=== PATIENT | female | born 1955 | race Caucasian/White ===

== ENCOUNTER 2024-07-08 13:07 | Emergency (ER) | payer OTHER, SELFPAY ==
[2024-07-08 13:12] VITALS: BP 117/85
--- NOTE | 2024-07-08 13:46 | ED.GENMED ---
History of Present Illness
General
Chief Complaint: Musculo-Skeletal Complaint
Time Seen by Provider: 07/08/24 13:46
History of Present Illness
History of Present Illness:
TIME OF INITIAL ENCOUNTER: 2 PM
HPI: The patient presents with pain in the inferior portion of the left buttock which started last week. At that time, she also had symptoms that radiated down to the mid thigh. She had been doing a little bit better and then yesterday she moved
awkwardly and had severe debilitating symptoms. However today she is improved. She thought maybe she has sciatica but her friend thought it could be coming from her hip. Primary care suggested could be muscular in nature when she was there for a
blood pressure check.
EXAM:
GENERAL: Well appearing in no distress
HEENT: Moist oral mucosa
CARDIOVASCULAR: No murmurs, normal heart rate, regular rhythm, No chest wall tenderness
PULMONARY: No respiratory distress, breath sounds are clear and equal
ABDOMEN: Soft with no peritoneal signs, no tenderness
NEUROLOGIC: Excellent strength all extremities, no coordination deficits, she has excellent strength in an L5 and S1 distribution, she has normal L4 reflexes
PSYCHIATRIC: Appropriate mental status, normal insight and judgement
EXTREMITIES: Nontender, no edema, moves all extremities equally
BACK: No midline L-spine tenderness, borderline positive straight leg raise at 60 degrees on the left
SKIN: No rash, no lesions
NUMBER AND COMPLEXITY OF PROBLEMS ADDRESSED AT THE ENCOUNTER
� Chronic conditions affecting care: High blood pressure
� Acute Exacerbation and/or Progression of Chronic Illness: This is an acute problem
� Differential Diagnosis includes: Muscle strain, sciatica, hip pathology less likely
AMOUNT AND/OR COMPLEXITY OF DATA TO BE REVIEWED AND ANALYZED
� I performed an independent evaluation of and my interpretation is:
EKG:
CT:
X-rays:
Laboratory Studies:
Other:
� Review of other/old records: No old records available for review
� Clinical information was obtained by an independent historian: I spoke to niece at bedside
� Prescriptions/Medications Considered but not given: Declines analgesia
� Further testing considered but not performed: No clear indication for imaging at this time. Neurologically intact therefore no MRI. She has no midline tenderness or pain therefore no x-ray.
RISK OF COMPLICATIONS AND/OR MORBIDITY OR MORTALITY OF PATIENT MANAGEMENT
� Social determinants of health affecting care: Lives at home
� Discussion with other providers:
� Escalation of care including admission/observation vs risk of discharge considered: History and exam is consistent with sciatica type of pain. I recommend that the patient try NSAIDs. She did take Tylenol with some
improvement as well.
ANY OTHER UPDATES:
Phy Exam
Physical Exam
Physical Exam:
See HPI
Course
Vital Signs
Initial and Last Documented VS:
Initial Vital Signs
Temp Pulse Resp BP Pulse Ox
36.9 C 103 18 117/85 98
07/08/24 13:12 07/08/24 13:12 07/08/24 13:12 07/08/24 13:12 07/08/24 13:12
Last Documented Vital Signs
Temp Pulse Resp BP Pulse Ox
36.9 C 103 18 117/85 98
07/08/24 13:12 07/08/24 13:12 07/08/24 13:12 07/08/24 13:12 07/08/24 13:12
*Critical Care Note
Total Time (30-74mins, 75-104mins- exclusive of procedures): Not Applicable
ED Attending Note
-
Portions of this chart may have been created with voice recognition software.� Occasional wrong word or��sound alike� substitutions may have occurred due to the inherent limitations of voice recognition software.
Discharge Plan
Departure
Patient Disposition: Home (Routine Discharge)
Date of Disposition: 07/08/24
Time of Disposition: 14:06
Patient with high blood pressure during this ER visit?: Yes
Discharge Problem:
Sciatica
Instructions: Sciatica ED, Exercises for sciatic pain, BLOOD PRESSURE
Referrals:
Juan Mullen MD [Active] - Follow up in 2-3 days
Activity Restrictions/Additional Instructions:
I recommend 3-4 [id number] ibuprofen (Motrin) every 8 hours with food for a few days. Return here if worse. Follow with your primary care doctor. If symptoms persist I have also given you the contact information for local orthopedist.
Interventions
Interventions:
*Risk Screen - Suicide Last Done: 07/08/24 13:12
*General Assessment Last Done: 07/08/24 13:12
*ED COVID-19 Vaccine History Last Done: 07/08/24 13:12
ED-Musculoskeletal Assessment Last Done: 07/08/24 14:04
Discharge Date and Time
Print Language: MACEDONIAN
== END 2024-07-08 14:40 | disposition home or self-care (01) ==
LOC: EMR 13:07
PROVIDERS: EMERGENCY PHYSICIAN Emergency Medicine
DX: M54.42 Lumbago with sciatica, left side (principal); R03.0 Elevated blood-pressure reading, without diagnosis of hypertension; Z88.2 Allergy status to sulfonamides
CPT/HCPCS: 99282

== ENCOUNTER 2024-12-15 13:56 | Inpatient (IN) | payer OTHER, SELFPAY ==
[2024-12-15 10:55] VITALS: BP 153/84
[2024-12-15] MEDS: PERCOCET 5/325 1 TABLET PO (12:57)
--- NOTE | 2024-12-15 12:57 | ED.GENMED ---
History of Present Illness
General
Chief Complaint: Fall
Source: patient
Exam Limitations: none
Time Seen by Provider: 12/15/24 12:08
Nursing documentation reviewed up to this point in time: agreed with
History of Present Illness
History of Present Illness:
see MDM
Past History
Past History
ED Past Medical History: HTN
ED Past Surgical History: None
Social History
Tobacco: Non-smoker
Alcohol: None
Review of Systems
Review of Systems
Allergies reviewed?: Yes
All Other Systems: Not applicable
Phy Exam
Physical Exam
Physical Exam:
GENERAL: Alert , in no apparent distress
HEAD: NCAT
NECK: no midline tenderness, active ROM intact, no paraspinal muscle tenderness;
EYE: pupils equal and reactive, EOMs intact.
ENT: o/p clr, mmm. no hemotympanum
CARDIAC: Regular rate and rhythm, no edema
LUNGS: Clear breath sounds bilaterally, no acute respiratory distress, no wheezes/rales/rhonchi
ABDOMEN: Soft, without focal tenderness, no r/g, no cvat
NEUROLOGICAL: Alert and oriented, no focal neuro deficits, CN intact, 5/5 strength, sensation intact
SKIN: Warm and dry,
MUSCULOSKELETAL moderate R wrist swelling and tendneress, limited ROM, neuro intact
right shoulder/elbow normal
L elbow swelling, very tender, unable to move, effusion; normal sensation
shoulder nontender
PSYCH: Normal and appropriate interaction.
Course
Orders/Labs/Results
Orders:
Orders
12/15/24 Breakfast
Regular
At Your Request: Limited, [employer] Process Server Developer Required
Does patient need a safe tray?: No
12/15/24 10:58
CR Elbow - Left Min 3 Views Urgent
Comment:
Reason For Exam: injury: fall
CR Wrist - Right Min 3 Views Urgent
Comment:
Reason For Exam: injury: fall.
12/15/24 12:43
Oxycodone/Acetaminophen [Percocet 5/325] 1 tablet PO NOW STA
12/15/24 12:51
CT Upper Ext W/o Iv Cont Lt Urgent
Comment:
Reason For Exam: L elbow fx
12/15/24 13:24
Admit/Transfer Patient As Directed
Co-Sign Provider:
Level of Care: Inpatient admission
Assign to:: Telemetry
Physician / Group: prasad
Diagnosis: fracture
Reason for Telemetry: Arrhythmia
Date to Stop Telemetry: 12/18/24
Time to Stop Telemetry: 11:00
Reason for Hospitalization: fracture
Expected length of stay greater than two midnights?: Yes
ELOS- Estimated Length of Stay in days: 3
I certify the patient meets the requirements for IP care: Yes
PRN Pain Medication Management As Directed
May give lesser potent ordered pain med per pt: Yes
preference::
Protocol:: Medication orders for pain may be administered in a
manner that supports deferring to patient preference
when the pt is:
- Requesting an ordered lesser potent pain medication.
Least to most potent pain medications are defined
as: acetaminophen < NSAID < tramadol < opioids
(morphine, oxycodone, hydromorphone).
- Requesting a lesser dose of the same medication IF
ORDERED.
- Requesting a less intrusive route of administration
if both routes are prescribed by the provider (PO <
IV).
12/15/24 13:25
Code Status As Directed
Resuscitation Status: Full Code
12/15/24 13:33
Complete Blood Count/With Diff Urgent
Comprehensive Metabolic Panel Urgent
12/15/24 13:43
EKG [Electrocardiogram (*1)] Routine
Reason for Study: Tachycardia
12/15/24 16:08
Acetaminophen [Tylenol] 650 mg PO Q4HWA
HYDROmorphone [Dilaudid] 0.5 mg IV Q4HPRN PRN
Oxycodone [Roxicodone] 5 mg PO Q4HPRN PRN
12/15/24 16:08
ORTHOPEDIC CONSULT Routine
Consulting Provider: Hesham Benson
Was physician already notified: Yes
Activity As Directed
Activity Level: As Tolerated
Bladder Scan As Directed
Follow Bladder Retention/Intermittent Cath Algorithm?: Yes
PRN if no void in __ hours: 6
Comment: if not voiding 6 hrs upon arrival to floor, bladder scan & follow algorithm
Intake/ Output As Directed
Frequency: Per unit guidelines
Pneumatic Compression Sleeves As Directed
Type: Thigh high
Straight Cath As Directed
Frequency: Per Retention Algorithm
Additional Instructions: straight cath as needed per acute urinary retention algorithm for 24 hrs
Additional Instructions: for bladder scan greater than 400 mL
Vital Signs As Directed
Frequency: Per unit guidelines
Ot Eval And Treat Routine
Pt Eval And Treat Routine
Activity Level: As Tolerated
DX Deep Vein Thrombosis Video Routine
DX Deep Vein Thrombosis Video Routine
12/15/24 20:00
Docusate Sodium [Colace] 100 mg PO BID
Sennosides [Senokot] 17.2 mg PO BID
12/18/24 11:00
DC Protocol for Telemetry ONCE
Abnormal Lab Results
12/15/24
13:33
WBC 14.9 H 10^3/uL
(4.8-10.8)
Abs Immat Gran (auto) 0.1 H 10^3/uL
(0-0.05)
Absolute Neuts (auto) 13.3 H 10^3/uL
(1.4-6.5)
Absolute Lymphs (auto) 0.8 L 10^3/uL
(1.2-3.4)
Neutrophils % 89.2 H %
(42.2-75.2)
Lymphocytes % 5.6 L %
(20.5-51.1)
BUN 30 H mg/dl
(7-17)
Creatinine 1.3 H mg/dL
(0.6-1.0)
Glucose 101 H mg/dl
(70-99)
Calcium 11.1 H mg/dl
(8.4-10.2)
AST 37 H U/L
(14-36)
Alkaline Phosphatase 171 H U/L
(38-126)
Albumin 5.1 H g/dl
(3.5-5.0)
12/15/24 13:33
12/15/24 13:33
Vital Signs
Initial and Last Documented VS:
Initial Vital Signs
Temp Pulse Resp BP Pulse Ox
36.9 C 108 16 153/84 98
12/15/24 10:55 12/15/24 10:55 12/15/24 10:55 12/15/24 10:55 12/15/24 10:55
Last Documented Vital Signs
Temp Pulse Resp BP Pulse Ox
36.7 C 123 18 178/96 97
12/15/24 15:54 12/15/24 15:54 12/15/24 15:54 12/15/24 15:54 12/15/24 15:54
MDM/Problems Addressed
Differential Diagnosis Includes:
see MDM
MDM/Problems Addressed:
Note:
CHIEF COMPLAINT(S)
Left elbow and wrist pain following a fall.
HISTORY OF PRESENT ILLNESS
The patient, a female 68 y/o , presents with pain in her left elbow and wrist following a fall. She reported tripping while walking out to her car, attempting to brace her fall, resulting in the injuries. The incident occurred after she [place] a [place] an amusement park with her grandchildren. She did not lose consciousness but felt shaky and required assistance to get up. No head, neck, or rib injury was reported. The patient described her wrist as uncomfortable due to the weight of ice
applied.
she deneis headache, vomiting, confusion, neck pain, rib pain, weakness, sob.
PAST SURGICAL HISTORY
The patient reports having had surgery on her pinky, conducted at [facility].
SOCIAL HISTORY
The patient lives with her daughter and sister, which she describes as a supportive living arrangement.
REVIEW OF SYSTEMS
- Musculoskeletal: Left elbow and wrist pain with confirmed fractures.
- Neurological: [place] shaky immediately post-fall; no loss of consciousness.
- General: No head or rib injuries reported.
PHYSICAL EXAM
- Nursing notes reviewed and vital signs reviewed
.
PROBLEM LIST
Acute:
- Fracture of the distal humerus and wrist on the left side
.
PLAN
1. Initiate stabilization with a splint and sling to immobilize the affected areas temporarily.
2. Pain management with Percocet as patient previously tolerated this medication.
3. Orthopedic consultation to determine need for surgical intervention.
4. Provide a work note and recommend rest and limited use of the left arm.
5. Discuss with orthopedic services for potential outpatient follow-up and further management.
DIFFERENTIAL DIAGNOSIS
The Differential Diagnosis includes, in no particular order and is not limited to:
1. Traumatic fracture.
2. Simple elbow dislocation.
3. Contusion.
4. Bursitis.
5. Sprain.
6. Arthritis exacerbation.
7. Tendon injury.
8. Ligament tear.
9. Periosteal injury.
10. Radial head fracture.
68 y/o F
mechanical fall today
R wrist and L elbow pain
no head strike
no LOC
no AC
R wrist xcray indep reviewed shows impacted distal radius fx
L elbow xray indep reviewed shows distal humerus fx
both arms fractured, d/c ortho
requests CT of the elbow and both will need operative management
splint R volar velcro
and L posterior and sling
admit to medicine and he will take to OR
*Pulse Oximetry
SaO2: 98
Oxygen Mode of Delivery: Room air
Patient hypoxic: no (98)
*Critical Care Note
Total Time (30-74mins, 75-104mins- exclusive of procedures): Not Applicable
ED Attending Note
-
Portions of this chart may have been created with voice recognition software.� Occasional wrong word or��sound alike� substitutions may have occurred due to the inherent limitations of voice recognition software.
Discharge Plan
Departure
Patient Disposition: Admit
Date of Disposition: 12/15/24
Time of Disposition: 13:00
Presentation/result/management discussed w/ accepting MD/DO: Hospitalist
Condition: Fair
Covid-19: Not Applicable
Discharge Problem:
Elbow fracture, left, Fracture of right wrist
Interventions
Interventions:
*Risk Screen - Suicide Last Done: 12/15/24 15:51
*General Assessment Last Done: 12/15/24 12:58
*Neglect/Abuse Screening Last Done: 12/15/24 12:58
*ED- Fall Risk Assessment Last Done: 12/15/24 12:58
*ED COVID-19 Vaccine History Last Done: 12/15/24 12:58
*Nursing Disposition Last Done: 12/15/24 15:45
ED-Musculoskeletal Assessment Last Done: 12/15/24 12:01
ED- Neurological Assessment Last Done: 12/15/24 12:01
ED-Skin Assessment Last Done: 12/15/24 12:01
Discharge Date and Time
Discharge Date/Time: 12/15/24 15:45
[2024-12-15 12:58] VITALS: BMI 23.0
--- NOTE | 2024-12-15 13:06 | HPS.HSE ---
Addendum entered and electronically signed by Connie Perez MD 12/15/24 13:43:
Patient without significant cardiac history apart from asympotomatic heart murmur. Labs pending. Low risk for post cardiac complications after surgery.
Addendum entered and electronically signed by Connie Perez MD 12/15/24 13:40:
This is an addendum to H&P written by Roxy Cameron on 12/15/2024. �Patient seen and examined independently with JEWELRY DESIGNER.
68-year-old female past medical history of hypertension, osteopenia, osteoporosis, heart murmur, CKD, presenting with trip and fall falling forward onto her arms and knees.
Vital signs show tachycardia.
X-ray of the left elbow shows acute extra-articular transverse fracture of the distal left humerus extending to the medial and lateral epicondyles. �Large left elbow joint effusion likely hemarthrosis. �Right wrist x-ray shows acute impacted
comminuted intra-articular fracture of the distal right radius with fracture line extending proximally through the palmar cortex of the radial diaphysis.
Orthopedics consulted recommends CT scan of elbow. �Plan for surgical management of left distal humerus fracture and right wrist fracture on Tuesday unless availability opens up earlier. �Splint placed on right wrist. �Splint to be placed on left
elbow. �Pain control with Tylenol, oxy, Dilaudid PRN. Elevated BP and tachycardia secondary to pain.
Original Note:
Family Physician
-
Family Physician:
Chief Complaint
-
fall
History of Present Illness
68-year-old with past medical history of hypertension, osteoporosis, osteopenia, heart murmur, CKD presented to us status post fall at home. Patient stated, she tripped on something and fell forward onto her knees and arm. Patient stated bilateral
arm pain since the fall. Patient denied any prior headache, dizzy or syncope. Patient denied any fever, chills, chest pain, shortness of breath. Patient denies any abdominal pain, nausea, vomiting or diarrhea. Patient denies dysuria hematuria.
Admitting for further management for fracture
Medical History
Past Medical History
Past Medical History: Reports Other
Additional Past Medical History:
Essential hypertension, osteopenia, osteoporosis, CKD
Past Surgical History: Reports None
Social History
Tobacco: Smoker
Alcohol: None
Drug: None
Living: With Family
Family History
Family History: Not pertinent
Allergies / Home Medications
Allergies reflects when Allergies were last updated in [facility].
Home Medications with original date entered in [facility]
Allergy/Medication List:
Allergies
Allergy/AdvReac Type Severity Reaction Status Date / Time
Sulfa (Sulfonamide Allergy Swelling Verified 12/15/24 10:55
Antibiotics)
Review of Systems
-
Constitutional: Reports No Symptoms
EENT: Reports No Symptoms
Respiratory: Reports No Symptoms
Cardiac: Reports No Symptoms
Abdomen/GI: Reports No Symptoms
: Reports No Symptoms
Musculoskeletal: Reports No Symptoms
Skin: Reports No Symptoms
Neurological: Reports No Symptoms
Endocrine: Reports No Symptoms
Hematologic/Lymphatic: Reports No Symptoms
Psych: Reports No Symptoms
Physical Exam
Vital Signs
Vital Signs
Temp Pulse Resp BP Pulse Ox
98.4 F 108 16 153/84 98
12/15/24 10:55 12/15/24 10:55 12/15/24 10:55 12/15/24 10:55 12/15/24 13:00
Physical Exam
General: Well Developed, Well Nourished and No Apparent Distress
HEENT: NormoCephalic, Moist mucous membranes and Atraumatic
Respiratory: Clear
Cardiac: S1/S2 and Regular Rhythm; No Murmur or Rub
GI: Soft, Non Tender, Non Distended and Normal Bowel Sounds; No Organomegaly
Rectal: Deferred by Provider
Musculoskeletal: No Clubbing, No Cyanosis and Other (Right wrist swelling, tenderness, left elbow swelling)
Skin: No Rash
Neuro: AO x 3 and Nonfocal/grossly intact
Psych: Calm
Data Reviewed
-
Diagnostic Radiology: Report Reviewed by me
Lab Data: Labs Reviewed by me
Impression/Plan
-
# Right radius and left distal humerus fracture status post fall
- Wrist x-ray with impression ACUTE IMPACTED COMMINUTED INTRA-ARTICULAR FRACTURE of the DISTAL RIGHT RADIUS with a fracture line extending proximally through the palmar cortex of the radial diaphysis. Moderate dorsal angulation of the distal radial
articular surface.
- Elbow x-ray with impression of ACUTE EXTRA-ARTICULAR TRANSVERSE FRACTURE of the DISTAL LEFT HUMERUS extending through the medial and lateral epicondyles.Large left elbow joint effusion (hemarthrosis).
- CT of upper extremity pending
- Orthopedics
- PT/OT
- Oxy, Tylenol, Dilaudid PRN for pain
- Possible plan for OR on Tuesday
-splint in the ER
#essential HTn
-on Norvasc
#CKD
-labs pending
-will ctm
#osteopenia/osteoporosis
#DVT prophylaxis
-scd
#CODE status
-full code
[2024-12-15 13:19] VITALS: BP 178/71
[2024-12-15 13:40] LABS: Hematocrit 40.6 % (37.0-47.0); Hemoglobin 13.9 g/dL (12.0-16.0); Mean Corp Hgb Conc. 34.2 g/dL (33.0-37.0); Mean Corpuscular Volume 85.8 fL (81.0-99.0); Nucleated Red Blood Cells % 0 %; Platelet Count 249 10^3/uL (130-400); Red Cell Dist. Width 12.6 % (11.5-14.5)
[2024-12-15 14:13] LABS: ALT (SGPT) 28 U/L (0-35); AST (SGOT) 37 U/L (14-36); Albumin 5.1 g/dl (3.5-5.0); Alkaline Phosphatase 171 U/L (38-126); Blood Urea Nitrogen 30 mg/dl (7-17); Calcium 11.1 mg/dl (8.4-10.2); Carbon Dioxide 23 mmol/L (22-30); Chloride 101 mmol/L (98-107); Estimated Creatinine Clearance 37 ml/min; Glucose 101 mg/dl (70-99); Potassium 4.4 mmol/L (3.5-5.1); Sodium 135 mmol/L (135-145); Total Protein 7.7 g/dl (6.3-8.2); eGFR 44.51
--- NOTE | 2024-12-15 14:28 | CM ---
CM reviewed chart and met with pt bedside in ED. Lives with her sister and niece in 2 story home, 2 [facility] from [facility]. BR on second floor but plans to stay in first floor BR, has full BA first floor.
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
No hx VN or SNF
PC: Jojo Montenegro
Pharmacy: [facility] [id number] [address]
CM will continue to follow for any discharge planning needs.
[2024-12-15 15:50] VITALS: BMI 22.7
[2024-12-15 15:54] VITALS: BP 178/96
[2024-12-15] MEDS: TYLENOL 650 MG PO ×2 (18:25→21:26)
[2024-12-15] MEDS: DILAUDID 0.5 MG IV (18:29)
[2024-12-15 18:31] VITALS: BP 153/92
[2024-12-15 19:30] VITALS: BP 145/82
[2024-12-15] MEDS: OCUVITE SOFTGEL 1 CAP PO (21:20)
[2024-12-15] MEDS: COLACE 100 MG PO (21:20)
[2024-12-15] MEDS: SENOKOT 17.2 MG PO (21:21)
[2024-12-15] MEDS: OSCAL CAL 500 500 MG PO (21:24)
[2024-12-15] MEDS: VITAMIN D3 (cholecalciferol) 25 MCG PO (21:26)
[2024-12-15] MEDS: ROXICODONE 5 MG PO (21:35)
[2024-12-15 23:30] VITALS: BP 149/74
[2024-12-16] MEDS: TYLENOL PO ×2 (01:23→04:41)
[2024-12-16 03:22] VITALS: BP 153/88
[2024-12-16 07:10] VITALS: BP 168/68
--- NOTE | 2024-12-16 08:10 | W.PN.HOSP.TC ---
Today's Communication/Plan
-
Pain control
Plan for OR on Tuesday
Assessment / Plan
Assessment / Plan
69F with HTN, CKD 4 presenting with fall found to have right radius and left distal humerus fracture.
Right radius and left distal humerus fracture
- CT of L upper extremity performed, also has a small joint effusion
- Orthopedics consulted�per notes plan for OR on Tuesday
- PT/OT
- Oxy, Tylenol, Dilaudid PRN for pain
-splint in the ER
#essential HTN
- BP elevated
Continue Norvasc, losartan
#CKD
- Creatinine stable
#osteopenia/osteoporosis
#Tobacco use
On varenicline at home
#DVT prophylaxis
-scd
#CODE status
-full code
Anticipated Discharge: > 48 hours
Subjective/Interval History
-
Date of Service: December 16, 2024
Feeling ok, pain controlled. No other issues.
Objective Data
-
Vital Signs:
Vital Signs
Temp Pulse Resp BP Pulse Ox
97.7 F 93 18 168/68 99
12/16/24 07:10 12/16/24 07:10 12/16/24 07:10 12/16/24 07:10 12/16/24 07:10
I&O
12/15/24 12/16/24 12/17/24
06:59 06:59 06:59
Intake Total 480 / 480
Balance 480 / 480
Review of Systems
-
All other systems: Reviewed and negative
Physical Exam
-
General: No Apparent Distress
HEENT: Moist Mucous Membranes, Anicteric and PERRLA
Respiratory: Clear to Auscultation; Negative Wheezes, Rales or Rhonchi
Cardiac: Regular Rhythm and S1/S2; Negative Murmur, Rub or Gallop
GI: Soft, Nontender, Nondistended and Normal Bowel Sounds
Musculoskeletal: No Edema
Skin: Warm and Dry; Negative Rash, Ulcers or Lesions
Neuro: Awake and AO x 3
Hematologic / Lymphatic: No Lymphadenopathy
Psych: Calm
Data Reviewed
-
CT Scan: Report Reviewed by me
Labs: Labs Reviewed by me and Discussed with Patient
[2024-12-16] MEDS: SENOKOT 17.2 MG PO ×2 (09:06→19:58)
[2024-12-16] MEDS: TYLENOL 650 MG PO ×4 (09:06→19:58)
[2024-12-16] MEDS: OCUVITE SOFTGEL 1 CAP PO ×2 (09:07→19:57)
[2024-12-16] MEDS: COZAAR 100 MG PO (09:07)
[2024-12-16] MEDS: OSCAL CAL 500 500 MG PO ×2 (09:07→19:57)
[2024-12-16] MEDS: NORVASC 10 MG PO (09:07)
[2024-12-16] MEDS: COLACE 100 MG PO ×2 (09:07→19:57)
[2024-12-16] MEDS: CRESTOR 5 MG PO (09:07)
[2024-12-16] MEDS: ROXICODONE 5 MG PO ×3 (09:16→22:10)
[2024-12-16 11:36] VITALS: BP 142/78
--- NOTE | 2024-12-16 15:11 | W.PN.UPDATE ---
Update Note
Progress Note Update
Patient seen with family members at the bedside this afternoon. Full consult note to follow. Plan for OR on Monday 12/18 for ORIF right distal radius and left distal humerus fractures. Risks, benefits, alternatives, recovery process and potential
complications were discussed in detail. Surgical and blood consent signed and in patient chart.
--continue with immobilization in splints.
--NWB to LUE, limit weight bearing to RUE.
--pain control prn.
[2024-12-16 15:15] VITALS: BP 130/66
--- NOTE | 2024-12-16 18:22 | CON.ORTHO ---
Consultation
-
Date/Time Consultation Requested: 12/16/2024; time unknown
Date/Time Consultation Performed: 12/16/2024
Requesting Provider: unknown
Performing Provider: Cori Langston PA-C
Reason for Consultation: Right wrist fracture, Left elbow fracture
Consultation - Orthopedics
History
Ms. Willis is a 69 year old female with PMH of hypertension, osteoporosis, osteopenia, heart murmur, CKD seen today for her right wrist and left elbow. She reports she tripped while at home and landed with her arms outstretched. She was able to get
up off the ground, but knew immediately that her right was broken. She presented to ED where x-rays revealed a right distal radius fracture and left distal humerus fracture. She was splinted in the ED. She does endorse pain in her right wrist
with movement, but states her pain is well controlled at present. She denies pain elsewhere.
She lives at home with two family members. She denies any known history of difficulty with anesthesia. She denies PMH of DVT, CVA, TN or DM.
Allergies / Home Medications
Allergy/AdvReac Type Severity Reaction Status Date / Time
Sulfa (Sulfonamide Allergy Swelling Verified 12/15/24 10:55
Antibiotics)
�Medication �Instructions �Recorded
amlodipine 10 mg tablet 10 mg PO DAILY Blood Pressure 12/15/24
aspirin 81 mg tablet 81 mg PO DAILY Blood Clot 12/15/24
Prevention/Tx
calcium carbonate (Calcium 600) 600 mg PO BID Supplement 12/15/24
cholecalciferol (vitamin D3) 25 25 mcg PO HS Supplement 12/15/24
mcg (1,000 unit) tablet
docusate sodium 100 mg tablet 100 mg PO DAILYPRN PRN constipation 12/15/24
losartan 100 mg tablet 100 mg PO DAILY Blood Pressure 12/15/24
magnesium oxide 400 mg PO HSPRN PRN sleep 12/15/24
melatonin 10 mg tablet 10 mg PO HS PRN sleep 12/15/24
rosuvastatin 5 mg tablet 5 mg PO DAILY High Cholesterol 12/15/24
therapeutic multivitamin 1 tab PO DAILY Supplement 12/15/24
varenicline tartrate 1 mg tablet 1 mg PO HS Smoking Cessation 12/15/24
vit C 250 mg-vit E 90 mg-zinc 40 1 tab PO BID Supplement 12/15/24
mg-copper 1 [id number]
capsule (PreserVision AREDS-2)
Vital Signs / Lab Results
Temp Pulse Resp BP Pulse Ox
97.9 F 97 18 130/66 98
12/16/24 15:15 12/16/24 15:15 12/16/24 15:15 12/16/24 15:15 12/16/24 15:15
12/15/24 13:33
12/15/24 13:33
XR Left Elbow IMPRESSION:
1. ACUTE EXTRA-ARTICULAR TRANSVERSE FRACTURE of the DISTAL LEFT HUMERUS extending through the medial and lateral epicondyles.
2. Large left elbow joint effusion (hemarthrosis).
XR Right Wrist IMPRESSION:
ACUTE IMPACTED COMMINUTED INTRA-ARTICULAR FRACTURE of the DISTAL RIGHT RADIUS with a fracture line extending proximally through the palmar cortex of the radial diaphysis. Moderate dorsal angulation of the distal radial articular surface.
CT Left Upper Extremity IMPRESSION:
Probably comminuted nondisplaced acute distal left humeral fracture as described above. Associated small joint effusion.
Directed exam of the right upper extremity reveals wrsit brace in place. Good color and warmth of fingers. Patient able to wiggle fingers. Sensation intact to light touch. Capillary refill <2 seconds.
Directed exam of the left upper extremity reveals long arm splint in place. Good color and warmth of fingers. Patient able to wiggle fingers. Sensation intact to light touch. Capillary refill <2 seconds.
Assessment / Plan
Right distal radius fracture; Left distal humerus fracture
--Unfortunately, Cori sustained fractures of her right distal radius and left distal humerus. I recommend proceeding with open reduction internal fixation of her right distal radius and left distal humerus. The risks, benefits, alternatives,
recovery process and potential complications were discussed in detail. She verbalized understanding and would like to proceed with surgery. This is planned for Monday 12/18 under the direction of Dr. Benson. Surgical and blood consents signed and
placed on patient chart.
--Continue with immobilization in splints.
--NWB to LUE, limit weight bearing to RUE.
--Pain control prn. Ice and elevation for edema control.
--Orthopedics will continue to follow along.
[2024-12-16 19:53] VITALS: BP 140/64
[2024-12-16] MEDS: VITAMIN D3 (cholecalciferol) 25 MCG PO (22:11)
[2024-12-16 22:58] VITALS: BP 151/51
[2024-12-17] VITALS (8 sets, daily range): BP systolic 117–183; BP diastolic 61–97; PULSE 113
[2024-12-17] MEDS: TYLENOL PO (01:17)
[2024-12-17] MEDS: ROXICODONE 5 MG PO ×4 (04:14→21:35)
[2024-12-17] MEDS: TYLENOL 650 MG PO ×5 (04:14→21:23)
[2024-12-17] MEDS: OSCAL CAL 500 500 MG PO ×2 (08:27→21:23)
[2024-12-17] MEDS: NORVASC 10 MG PO (08:27)
[2024-12-17] MEDS: COZAAR 100 MG PO (08:27)
[2024-12-17] MEDS: SENOKOT 17.2 MG PO ×2 (08:28→21:22)
[2024-12-17] MEDS: COLACE 100 MG PO ×2 (08:28→21:23)
[2024-12-17] MEDS: CRESTOR 5 MG PO (08:28)
[2024-12-17] MEDS: OCUVITE SOFTGEL 1 CAP PO ×2 (08:28→21:23)
--- NOTE | 2024-12-17 08:37 | W.PN.UPDATE ---
Update Note
Progress Note Update
Cori is resting comfortably in bed this morning. She reports the pain in her right and elbow have improved. She has no questions or concerns at this time.
Directed exam of the right upper extremity reveals wrsit brace in place. Good color and warmth of fingers. Patient able to wiggle fingers. Sensation intact to light touch. Capillary refill <2 seconds.
Directed exam of the left upper extremity reveals long arm splint in place. Good color and warmth of fingers. Patient able to wiggle fingers. Sensation intact to light touch. Capillary refill <2 seconds.
Right distal radius fracture; Left distal humerus fracture
--Plan for OR tomorrow for ORIF right wrist and left elbow under the direction of Dr. Benson. NPO after mn for OR 12/18.
--Continue with immobilization in splints.
--NWB to LUE, limit weight bearing to RUE.
--Pain control prn. Ice and elevation for edema control.
--Orthopedics will continue to follow along.
[2024-12-17 10:37] LABS: Hematocrit 37.4 % (37.0-47.0); Hemoglobin 12.8 g/dL (12.0-16.0); Mean Corp Hgb Conc. 34.2 g/dL (33.0-37.0); Mean Corpuscular Volume 85.4 fL (81.0-99.0); Platelet Count 226 10^3/uL (130-400); Red Cell Dist. Width 12.7 % (11.5-14.5)
--- NOTE | 2024-12-17 11:09 | CM ---
Patient seen at bedside
PT/OT rec HOME HEALTH
prefers [facility] - notified liaison
Plan for OR tomorrow for ORIF right wrist and left elbow
will need PT/OT post-op
PLAN: home with [facility], will follow up post-op PT/OT
[2024-12-17 11:32] LABS: Blood Urea Nitrogen 22 mg/dl (7-17); Calcium 9.8 mg/dl (8.4-10.2); Carbon Dioxide 22 mmol/L (22-30); Chloride 102 mmol/L (98-107); Estimated Creatinine Clearance 36 ml/min; Glucose 90 mg/dl (70-99); Potassium 3.9 mmol/L (3.5-5.1); Sodium 132 mmol/L (135-145); eGFR 44.24
--- NOTE | 2024-12-17 11:52 | VNURNOTE ---
Home Health Liaison met with patient at bedside to discuss [facility] nurse/therapy, visits, schedule and homebound status. Patient is agreeable and understands that visits at home will be 2-3 x per week to assess and teach medical management. Patient
is aware that [facility] will contact them for start of care in 1-2 days after discharge from . Provided contact number for [facility].
PM [facility] referral completed in [facility].
--- NOTE | 2024-12-17 12:15 | W.PN.HOSP.TC ---
Today's Communication/Plan
-
Assessment / Plan
Assessment / Plan
General: No Apparent Distress, Comfortable and Conversant
HEENT: NormoCephalic, Moist mucous membranes, Atraumatic
Respiratory: Clear and Non Labored Respirations
Cardiac: S1/S2 and Regular Rhythm; No Rub or Gallop
GI: Soft, Non Tender, Non Distended and Normal Bowel Sounds
Musculoskeletal: No Edema, right wrist splint, left arm sling
: NO Herr
Neuro: Awake, Alert, Nonfocal/grossly intact
Psych: Calm and Intact Judgment/Insight
69F with HTN, CKD 4 presenting with fall found to have right radius and left distal humerus fracture.
Right radius and left distal humerus fracture
- CT of L upper extremity performed, also has a small joint effusion
- Orthopedics consulted�per notes plan for OR on Monday 12/18, n.p.o. after midnight
- PT/OT
- Oxy, Tylenol, Dilaudid PRN for pain
- splint in the ER
#essential HTN
- BP elevated
Continue Norvasc, losartan
#CKD
- Creatinine stable
#osteopenia/osteoporosis
#Tobacco use
On varenicline at home
#DVT prophylaxis
-scd
#CODE status
-full code
Anticipated Discharge: 24 - 48 hours
Subjective/Interval History
-
Date of Service: December 17, 2024
Patient was seen and examined at bedside this morning. Comfortable other than right wrist pain. Awaiting OR with orthopedics tomorrow.
Objective Data
-
Labs:
Laboratory Results
12/17/24 12/17/24
08:58 09:47
WBC 10.0
Hgb 12.8
Hct 37.4
Plt Count 226
Sodium Cancelled 132 L
Potassium Cancelled 3.9
Chloride Cancelled 102
Carbon Dioxide Cancelled 22
BUN Cancelled 22 H
Creatinine Cancelled 1.3 H
Glucose Cancelled 90
Calcium Cancelled 9.8
Vital Signs:
Vital Signs
Temp Pulse Resp BP Pulse Ox
97.9 F 90 16 155/74 98
12/17/24 07:00 12/17/24 08:27 12/17/24 07:00 12/17/24 08:27 12/17/24 08:41
I&O
12/16/24 12/17/24 12/18/24
06:59 06:59 06:59
Intake Total 480 / 480 1320 / 1320
Balance 480 / 480 1320 / 1320
Review of Systems
-
History Source: Patient
All other systems: Reviewed and negative
Musculoskeletal: Reports Joint Pain (Right wrist pain and left shoulder pain)
Physical Exam
-
General: No Apparent Distress
[2024-12-17] MEDS: VITAMIN D3 (cholecalciferol) 25 MCG PO (21:23)
[2024-12-18] VITALS (16 sets, daily range): BP systolic 71–167; BP diastolic 58–80
[2024-12-18] MEDS: TYLENOL PO ×2 (03:00→13:45)
[2024-12-18] MEDS: TYLENOL 650 MG PO ×5 (05:25→23:16)
[2024-12-18] MEDS: ANCEF 10 IV (05:26)
[2024-12-18] MEDS: CRESTOR 5 MG PO (07:46)
[2024-12-18] MEDS: COLACE 100 MG PO ×2 (07:46→20:01)
[2024-12-18] MEDS: COZAAR 100 MG PO (07:46)
[2024-12-18] MEDS: NORVASC 10 MG PO (07:46)
[2024-12-18] MEDS: SENOKOT 17.2 MG PO ×2 (07:46→20:01)
[2024-12-18] MEDS: OCUVITE SOFTGEL 1 CAP PO ×2 (07:46→20:01)
[2024-12-18] MEDS: OSCAL CAL 500 500 MG PO ×2 (07:46→20:04)
[2024-12-18] MEDS: ROXICODONE 5 MG PO ×3 (07:55→20:01)
[2024-12-18 08:58] LABS: Hematocrit 37.0 % (37.0-47.0); Hemoglobin 12.8 g/dL (12.0-16.0); Mean Corp Hgb Conc. 34.6 g/dL (33.0-37.0); Mean Corpuscular Volume 86.2 fL (81.0-99.0); Nucleated Red Blood Cells % 0 %; Platelet Count 225 10^3/uL (130-400); Red Cell Dist. Width 12.6 % (11.5-14.5)
[2024-12-18 09:12] LABS: Blood Urea Nitrogen 21 mg/dl (7-17); Calcium 10.0 mg/dl (8.4-10.2); Carbon Dioxide 23 mmol/L (22-30); Chloride 103 mmol/L (98-107); Estimated Creatinine Clearance 39 ml/min; Glucose 94 mg/dl (70-99); Potassium 3.8 mmol/L (3.5-5.1); Sodium 134 mmol/L (135-145); eGFR 48.70
[2024-12-18 09:22] LABS: INR 0.94; PT 12.9 Sec (11.4-14.6)
[2024-12-18 09:23] LABS: APTT 29.7 Sec (23.4-35.0)
--- NOTE | 2024-12-18 10:45 | W.PN.HOSP.TC ---
Today's Communication/Plan
-
Assessment / Plan
Assessment / Plan
General: No Apparent Distress, Comfortable and Conversant
HEENT: NormoCephalic, Moist mucous membranes, Atraumatic
Respiratory: Clear and Non Labored Respirations
Cardiac: S1/S2 and Regular Rhythm; No Rub or Gallop
GI: Soft, Non Tender, Non Distended and Normal Bowel Sounds
Musculoskeletal: No Edema, right wrist splint, left arm sling
: NO Herr
Neuro: Awake, Alert, Nonfocal/grossly intact
Psych: Calm and Intact Judgment/Insight
69F with HTN, CKD 4 presenting with fall found to have right radius and left distal humerus fracture.
Right radius and left distal humerus fracture
- CT of L upper extremity performed, also has a small joint effusion
- Orthopedics consulted�per notes plan for OR today 12/18, has been n.p.o. after midnight
- PT/OT
- Oxy, Tylenol, Dilaudid PRN for pain
- splint in the ER
#essential HTN
- BP elevated
Continue Norvasc, losartan
#CKD
- Creatinine stable
#osteopenia/osteoporosis
#Tobacco use
On varenicline at home
#DVT prophylaxis
-scd
#CODE status
-full code
Anticipated Discharge: 24 - 48 hours
Subjective/Interval History
-
Date of Service: December 18, 2024
Patient was seen and examined at bedside this morning. Going to OR today with Ortho for repair of distal right radial and distal left humerus fractures.
Objective Data
-
Labs:
Laboratory Results
12/18/24
08:38
WBC 10.5
Hgb 12.8
Hct 37.0
Plt Count 225
PT 12.9
INR 0.94
APTT 29.7
Sodium 134 L
Potassium 3.8
Chloride 103
Carbon Dioxide 23
BUN 21 H
Creatinine 1.2 H
Glucose 94
Calcium 10.0
Vital Signs:
Vital Signs
Temp Pulse Resp BP Pulse Ox
98.5 F 95 14 167/79 98
12/18/24 08:08 12/18/24 08:08 12/18/24 08:08 12/18/24 08:08 12/18/24 08:16
I&O
12/17/24 12/18/24 12/19/24
06:59 06:59 06:59
Intake Total 1320 / 1320 1660 / 1660
Balance 1320 / 1320 1660 / 1660
Review of Systems
-
History Source: Patient
All other systems: Reviewed and negative
Musculoskeletal: Reports Joint Pain (Left elbow and right wrist)
Physical Exam
-
General: No Apparent Distress
[2024-12-18] MEDS: DILAUDID 0.25 MG IV ×3 (13:13→14:02)
--- NOTE | 2024-12-18 15:18 | CM ---
Reviewed the chart notes. Patient off floor for ORIF right wrist and left elbow. NWB to [facility]. CM continues to be available to patient/family and is monitoring medical plan for needs at discharge.
Plan: Discharge plans will depend on the patient's progress with PT/OT evaluations.
--- NOTE | 2024-12-18 16:36 | PTCARENOTE ---
Received pt from OR at around 1430. Pt. [facility] off [facility], family present at bedside listened to report. Left arm received nerve block, pt. with no feeling or movement in left arm. R arm with discomfort. Scheduled Tylenol and PRN Oxy given
to pt. Pt. now resting comfortably in bed with no current complaints. Will continue with ongoing plan of care.
[2024-12-18] MEDS: ANCEF 5 IV (17:00)
[2024-12-18] MEDS: ASPIR LOW (ENTERIC COATED) 81 MG PO (17:00)
--- NOTE | 2024-12-18 23:02 | PTCARENOTE ---
Oral care was not performed on patient because she stated that it was her preference to brush her teeth in the morning.
[2024-12-18] MEDS: VITAMIN D3 (cholecalciferol) 25 MCG PO (23:16)
[2024-12-18] MEDS: DILAUDID 0.5 MG IV (23:16)
[2024-12-19] MEDS: ANCEF 5 IV (01:26)
[2024-12-19 03:00] VITALS: BP 116/75
[2024-12-19] MEDS: TYLENOL PO (05:25)
[2024-12-19] MEDS: ROXICODONE 5 MG PO ×2 (06:25→10:44)
[2024-12-19 07:50] VITALS: BP 135/85
[2024-12-19] MEDS: OCUVITE SOFTGEL 1 CAP PO (08:11)
[2024-12-19] MEDS: TYLENOL 650 MG PO ×2 (08:11→13:02)
[2024-12-19] MEDS: SENOKOT 17.2 MG PO (08:12)
[2024-12-19] MEDS: COLACE 100 MG PO (08:12)
[2024-12-19] MEDS: COZAAR 100 MG PO (08:12)
[2024-12-19] MEDS: CRESTOR 5 MG PO (08:12)
[2024-12-19] MEDS: OSCAL CAL 500 500 MG PO (08:12)
[2024-12-19] MEDS: ASPIR LOW (ENTERIC COATED) 81 MG PO (08:12)
[2024-12-19] MEDS: NORVASC 10 MG PO (08:13)
[2024-12-19 11:26] VITALS: BP 122/85; PULSE 107
[2024-12-19 11:27] VITALS: BP 122/85; PULSE 107
--- NOTE | 2024-12-19 12:16 | CM ---
patient seen at bedside
IMM explained & signed In chart
PT rec home health
referral in [facility] for [facility]-accepted
PLAN: home with [facility]
sister in law to transport
--- NOTE | 2024-12-19 12:48 | W.PN.HOSP.TC ---
Addendum entered and electronically signed by Dov Knutson DO 12/21/24 11:16:
likely etiology of the fractures:
Multifactorial, due to fall and osteoporosis
Original Note:
Today's Communication/Plan
-
Assessment / Plan
Assessment / Plan
General: No Apparent Distress, Comfortable and Conversant
HEENT: NormoCephalic, Moist mucous membranes, Atraumatic
Respiratory: Clear and Non Labored Respirations
Cardiac: S1/S2 and Regular Rhythm; No Rub or Gallop
GI: Soft, Non Tender, Non Distended and Normal Bowel Sounds
Musculoskeletal: No Edema, right wrist splint, left arm sling
: NO Herr
Neuro: Awake, Alert, Nonfocal/grossly intact
Psych: Calm and Intact Judgment/Insight
69F with HTN, CKD 4 presenting with fall found to have right radius and left distal humerus fracture.
Right radius and left distal humerus fracture
- CT of L upper extremity performed, also has a small joint effusion
- Status post OR yesterday 12/18 with Ortho
- PT/OT recommending home health
- Oxy, Tylenol, Dilaudid PRN for pain
- Aspirin 81 mg twice daily x 31 days for DVT prophylaxis per Ortho
#essential HTN
- BP elevated
Continue Norvasc, losartan
#CKD
- Creatinine stable
#osteopenia/osteoporosis
#Tobacco use
On varenicline at home
#DVT prophylaxis
-scd
#CODE status
-full code
Anticipated Discharge: 24 - 48 hours
Subjective/Interval History
-
Date of Service: December 19, 2024
Patient was seen and examined at bedside this morning. Her pain is increasing this morning now that left upper extremity nerve block has worn off postsurgery.
Objective Data
-
Vital Signs:
Vital Signs
Temp Pulse Resp BP Pulse Ox
98.6 F 96 16 135/85 97
12/19/24 07:50 12/19/24 07:50 12/19/24 07:50 12/19/24 07:50 12/19/24 07:50
I&O
12/18/24 12/19/24 12/20/24
06:59 06:59 06:59
Intake Total 1660 / 1660 1160 / 1160
Balance 1660 / 1660 1160 / 1160
Review of Systems
-
History Source: Patient
All other systems: Reviewed and negative
Musculoskeletal: Reports Joint Pain (Bilateral upper extremity pain, left worse than right)
Physical Exam
-
General: No Apparent Distress
--- NOTE | 2024-12-19 14:24 | W.DCSUMMARY ---
Discharge Summary
Discharge Data
Date of Admission: 12/15/24
Date of Discharge: 12/19/24
Total time spent discharging patient (in min): 47
-
Pending Results: No
Hospital Course
Ms. Willis is a 69-year-old female with medical history of CKD stage IV, hypertension, and osteoporosis who presented from home after fall onto both outstretched arms. She suffered a distal right radial and distal left humeral fracture. She was
brought to the OR on 12/18 with orthopedics for ORIF of both fractures. She has a postoperative right wrist splint in place and left sling in place. She is to remain nonweightbearing until follow-up in the outpatient orthopedic office for
reevaluation. She is going to be discharged to home with family and visiting nurse service. She is to remain on aspirin 81 mg twice daily for 30 days postoperatively, after which she can return to her usual dosing of 81 mg daily. At time of
hospital discharge she was medically stable.
General: No Apparent Distress, Comfortable and Conversant
HEENT: NormoCephalic, Moist mucous membranes, Atraumatic
Respiratory: Clear and Non Labored Respirations
Cardiac: S1/S2 and Regular Rhythm; No Rub or Gallop
GI: Soft, Non Tender, Non Distended and Normal Bowel Sounds
Musculoskeletal: No Edema, right wrist splint, left arm sling
: NO Herr
Neuro: Awake, Alert, Nonfocal/grossly intact
Psych: Calm and Intact Judgment/Insight
Discharge Plan
-
Patient Disposition: Home with Home Care
Discharge Diagnosis/Procedures: Right radial and left humerus fractures
Activity: Other activity
Additional Activity: Nonweightbearing right and left upper extremities
Referrals:
Jojo Montenegro MD [Primary Care Provider, [facility]]
Prescriptions:
New
sennosides [Mariah-volodymyr] 8.6 mg Tablet
17.2 mg PO BID 5 Days Qty: 20 0RF
acetaminophen 325 mg Tablet
650 mg PO Q4HWA 5 Days Qty: 60 0RF
aspirin 81 mg Tablet,Delayed Release (Dr/Ec)
81 mg PO BID 30 Days Qty: 60 0RF
oxycodone 5 mg Tablet
5 mg PO Q4HPRN PRN (Reason: mild-sev pain) Qty: 12 0RF
Continued
therapeutic multivitamin Tablet
1 tab PO DAILY
calcium carbonate [Calcium 600] 600 mg calcium (1,500 mg) Tablet
600 mg PO BID
amlodipine 10 mg tablet
10 mg PO DAILY
losartan 100 mg tablet
100 mg PO DAILY
docusate sodium 100 mg Tablet
100 mg PO DAILYPRN PRN (Reason: constipation)
rosuvastatin 5 mg tablet
5 mg PO DAILY
varenicline tartrate 1 mg tablet
1 mg PO HS
cholecalciferol (vitamin D3) 25 mcg (1,000 unit) Tablet
25 mcg PO HS
melatonin 10 mg Tablet
10 mg PO HS PRN (Reason: sleep)
PreserVision AREDS-2 250-90-40-1 mg Capsule
1 tab PO BID
magnesium oxide 400 mg magnesium Tablet
400 mg PO HSPRN PRN (Reason: sleep)
Held
aspirin 81 mg Tablet
81 mg PO DAILY
Hold Instructions: Restart daily dosing after completing 30 days of 81 mg twice daily postoperatively
Discharge Orders:
Discharge Patient (As Directed); Ordered 12/19/24
Ordered By: Dov Knutson
Discharge Date and Time
Print Language: SYRIAN
[2024-12-19 15:48] VITALS: BP 127/68
--- NOTE | 2024-12-21 10:44 | PN.CDI ---
CDI
- -
CDI:
Physician Documentation Request
Admit Date: 12/15/24 13:56
Dear Doctor Rebekah
Please review the following and provide your response in the progress notes.
Patient presented to the Hospital with fractures of R radius and L humerus after a fall.
H@P; patient has Osteoporosis/Osteopenia
Could you clarify the likely etiology of the fractures
:
Multifactorial, due to fall and osteoporosis
Due to fall only
Other, please specify
Thank you,
Gwendolyn Call
[facility]
Please use your independent medical judgment in providing your response.
== END 2024-12-19 16:33 | disposition home health service (06) | DRG 493 ==
LOC: 3 WEST ACU 13:56
PROVIDERS: Internal Medicine; Physician Assistant; ADMITTING PHYSICIAN Hospitalist; ATTENDING PHYSICIAN Internal Medicine; CONSULT PHYSICIAN Orthopaedic Surgery Hand Surgery; EMERGENCY PHYSICIAN Emergency Medicine; PRIMARYCARE PHYSICIAN Family Medicine
PROC: 0PSH04Z Reposition Right Radius with Internal Fixation Device, Open Approach (ICD-10-PCS; 2024-12-18)
PROC: 0PSG04Z Reposition Left Humeral Shaft with Internal Fixation Device, Open Approach (ICD-10-PCS; 2024-12-18)
DX: M80.031A Age-related osteoporosis with current pathological fracture, right forearm, initial encounter for fracture (principal); N18.4 Chronic kidney disease, stage 4 (severe); M80.022A Age-related osteoporosis with current pathological fracture, left humerus, initial encounter for fracture; W01.0XXA Fall on same level from slipping, tripping and stumbling without subsequent striking against object, initial encounter; I12.9 Hypertensive chronic kidney disease with stage 1 through stage 4 chronic kidney disease, or unspecified chronic kidney disease; K59.00 Constipation, unspecified; F17.200 Nicotine dependence, unspecified, uncomplicated; E78.00 Pure hypercholesterolemia, unspecified; Z79.82 Long term (current) use of aspirin; Z79.899 Other long term (current) drug therapy; Z88.2 Allergy status to sulfonamides; Y93.01 Activity, walking, marching and hiking
CPT/HCPCS: 73070; 73080; 73110; 73200; 76000; 80048; 80053; 85025; 85027; 85610; 85730; 97162; 97164; 97166; 97168; 97530; 97535; 99285; C1713

== ENCOUNTER → 2025-01-23 08:48 | Outpatient (REF) | payer OTHER, SELFPAY | LOC: EMG 08:48 | PROVIDERS: ATTENDING PHYSICIAN Orthopaedic Surgery Hand Surgery; FAMILY PHYSICIAN Family Medicine | DX: M25.522 Pain in left elbow (principal) | CPT/HCPCS: 95886; 95909 ==

== ENCOUNTER 2025-03-31 18:11 | Emergency (ER) | payer OTHER, SELFPAY ==
[2025-03-31 18:13] VITALS: BP 170/90
--- NOTE | 2025-03-31 19:06 | ED.GENMED ---
History of Present Illness
General
Chief Complaint: Fall
Source: patient
Exam Limitations: none
Time Seen by Provider: 03/31/25 18:58
History of Present Illness
History of Present Illness:
69yo right hand dominant female with a history of a ORIF of R distal radius fracture in November 2024 presenting for evaluation after a fall about 3 hours ago. Patient was walking in her basement when she tripped and fell forward. She struck the
right side of her chest against a wood pallet. She also injured her right wrist and elbow. She struck her face and her glasses broke. No loss of consciousness. She has no headache or neck pain. She is mainly concerned about her right arm. She
does not take any blood thinners.
Past History
Past History
ED Past Medical History: HTN
ED Past Surgical History: None
Social History
Tobacco: Non-smoker
Alcohol: None
Phy Exam
General Physical Exam
General Presentation: well appearing and no apparent distress
General Skin: warm and dry
General Habitus: normal
General Mental: alert
ENT Exam
ENT Exam: normocephalic and other (No external signs of head trauma. No cervical spine tenderness. )
Pulmonary Exam
Pulmonary Exam: lungs clear, no respiratory distress, no rales, no crackles, no rhonchi, no wheezing and other (Mild tenderness to R anterior chest wall. No crepitus or skin changes. Bilateral breath sounds equal.)
Neurological Exam
Neurological Exam: alert, no motor deficits and other (Ambulating normally)
Matt Coma Scale
Eye Opening: Spontaneous
Verbal Response: Oriented
Motor Response: Obeys Commands
GCS Total Score: 15
Musculoskeletal Exam
Musculoskeletal Exam: other (Developing ecchymosis noted to R elbow with small amount of soft tissue swelling. Unable to fully extend elbow. No tenderness to palpation of wrist. 2+ radial pulse. Sensation intact.)
Skin Exam
Skin Exam: normal color and warm/dry
Psychiatric Exam
Psychiatric Exam: normal mood/affect
Course
Orders/Labs/Results
Orders:
Orders
03/31/25 18:18
CR Wrist - Right Min 3 Views Urgent
Comment:
Reason For Exam: fall with pain
Elbow, Right 3 View [CR Elbow - Right Min 3 Views] Urgent
Comment:
Reason For Exam: fall
03/31/25 19:06
CR Ribs-right 3 Vw W/pa Chest* Urgent
Comment:
Reason For Exam: R rib pain after fall
03/31/25 20:14
Sling Right-Treatment ONCE
Vital Signs
Initial and Last Documented VS:
Initial Vital Signs
Temp Pulse Resp BP Pulse Ox
98.7 F 117 18 170/90 98
03/31/25 18:13 03/31/25 18:13 03/31/25 18:13 03/31/25 18:13 03/31/25 18:13
Last Documented Vital Signs
Temp Pulse Resp BP Pulse Ox
98.7 F 117 18 170/90 98
03/31/25 18:13 03/31/25 18:13 03/31/25 18:13 03/31/25 18:13 03/31/25 19:08
MDM/Problems Addressed
Differential Diagnosis Includes:
69yoF here with R wrist and R elbow pain after a mechanical fall a few hours ago. Also c/o minor R anterior rib pain. No headache, neck pain, or blood thinners. Patient is awake, alert, with a GCS of 15. There is ecchymosis and soft tissue swelling
noted to R elbow. RUE is neurovascularly intact. Differential diagnosis includes: Fracture, dislocation, sprain, contusion
X-rays of right wrist, elbow, and rib series ordered. Imaging shows a suspected nondisplaced radial head fracture without other injuries. Patient placed in a sling. Supportive care discussed. She was advised to follow-up with orthopedics for
further care. Patient discharged in stable condition.
*Pulse Oximetry
SaO2: 98
Oxygen Mode of Delivery: Room air
Patient hypoxic: no
*Critical Care Note
Total Time (30-74mins, 75-104mins- exclusive of procedures): Not Applicable
ED Attending Note
-
Portions of this chart may have been created with voice recognition software.� Occasional wrong word or��sound alike� substitutions may have occurred due to the inherent limitations of voice recognition software.
Discharge Plan
Departure
Patient Disposition: Home (Routine Discharge)
Date of Disposition: 03/31/25
Time of Disposition: 20:20
Patient with high blood pressure during this ER visit?: Yes
Discharge Problem:
Closed fracture of head of right radius
Instructions: Elbow Fracture, Adult ED
Prescriptions:
No Action
therapeutic multivitamin Tablet
1 tab PO DAILY
calcium carbonate [Calcium 600] 600 mg calcium (1,500 mg) Tablet
600 mg PO BID
amlodipine 10 mg tablet
10 mg PO DAILY
aspirin 81 mg Tablet
81 mg PO DAILY
losartan 100 mg tablet
100 mg PO DAILY
docusate sodium 100 mg Tablet
100 mg PO DAILYPRN PRN (Reason: constipation)
rosuvastatin 5 mg tablet
5 mg PO DAILY
varenicline tartrate 1 mg tablet
1 mg PO HS
cholecalciferol (vitamin D3) 25 mcg (1,000 unit) Tablet
25 mcg PO HS
melatonin 10 mg Tablet
10 mg PO HS PRN (Reason: sleep)
PreserVision AREDS-2 250-90-40-1 mg Capsule
1 tab PO BID
magnesium oxide 400 mg magnesium Tablet
400 mg PO HSPRN PRN (Reason: sleep)
sennosides [Mariah-volodymyr] 8.6 mg Tablet
17.2 mg PO BID 5 Days Qty: 20 0RF
acetaminophen 325 mg Tablet
650 mg PO Q4HWA 5 Days Qty: 60 0RF
aspirin 81 mg Tablet,Delayed Release (Dr/Ec)
81 mg PO BID 30 Days Qty: 60 0RF
oxycodone 5 mg Tablet
5 mg PO Q4HPRN PRN (Reason: mild-sev pain) Qty: 12 0RF
Referrals:
Jojo Montenegro MD [Family Provider, Family Practice]
Hesham Benson MD [Active, Orthopedics]
Activity Restrictions/Additional Instructions:
Wear sling for immobilization. Apply ice to help with swelling. You may take Tylenol or ibuprofen as needed for pain.
Please call tomorrow to schedule a follow-up appointment with orthopedics.
Interventions
Interventions:
*Risk Screen - Suicide Last Done: 03/31/25 18:13
*General Assessment Last Done: 03/31/25 18:13
*Neglect/Abuse Screening Last Done: 03/31/25 18:13
*ED COVID-19 Vaccine History Last Done: 03/31/25 20:38
*ED Influenza Vaccine History Last Done: 03/31/25 20:38
[facility] Risk Assessment Tool Last Done: 03/31/25 20:38
*Nursing Disposition Last Done: 03/31/25 20:38
ED-Musculoskeletal Assessment Last Done: 03/31/25 20:36
ED- Neurological Assessment Last Done: 03/31/25 20:36
ED-Skin Assessment Last Done: 03/31/25 20:36
Discharge Date and Time
Discharge Date/Time: 03/31/25 20:39
Print Language: SURINAMESE
== END 2025-03-31 20:39 | disposition home or self-care (01) ==
LOC: EMR 18:11
PROVIDERS: EMERGENCY PHYSICIAN Student in an Organized Health Care Education/Training Program; FAMILY PHYSICIAN Family Medicine
DX: S52.124A Nondisplaced fracture of head of right radius, initial encounter for closed fracture (principal); S50.01XA Contusion of right elbow, initial encounter; W01.10XA Fall on same level from slipping, tripping and stumbling with subsequent striking against unspecified object, initial encounter; Y93.01 Activity, walking, marching and hiking; I10 Essential (primary) hypertension
CPT/HCPCS: 99283; 71101; 73080; 73110